=== PATIENT | female | born 1950 | race Caucasian/White ===

== ENCOUNTER 2017-04-12 21:58 | Inpatient (IN) | payer OTHER ==
--- NOTE | ~2017-04-12 | DS ---
Discharge Summary [facility] [address] [place]. [address] NAME: MANUEL AVENDAÑO : 52 STATUS : DIS Carla PAT#: [id number] AGE: 66 ADM/REG DATE : 04/12/17 MR#: [id number] REPORT SERV DATE: 04/16/17 DICTATED BY: LIOR HERNANDEZ DATE: 04/15/17 REPORT STATUS : Draft TRANSCRIBED BY: MODL DATE: 04/15/17 ADMISSION DATE: 04/12/2017 DISCHARGE DATE: 04/15/2017 DISCHARGE DIAGNOSES: 1. Pleuritic chest pain, currently improving. 2. Stable angina currently without pain. 3. Acute kidney injury, now resolved. 4. Chronic kidney disease, stage III. 5. Rheumatoid arthritis. 6. Type 2 diabetes mellitus. 7. Hyperlipidemia. 8. Hypertension. 9. CABG. 10.Chronic left bundle-branch block. 11.Pulmonary nodule, seen by Dr. De La Rosa in the outpatient setting. 12.Obstructive sleep apnea, noncompliant with CPAP. 13.Chronically elevated troponin, currently stable. 14.Prior history of cerebrovascular accident. CONSULTANTS DURING THIS HOSPITALIZATION: Dr. Migdalia Malloy of Cardiology. INVASIVE PROCEDURES DONE DURING THIS HOSPITALIZATION: None. BRIEF HISTORY OF PRESENT ILLNESS: The patient is a 66-year-old female, presented with nonproductive cough, episodes of nausea, vomiting, and having mid chest pain radiating to the left base of the lung and also radiating into the left arm, so she was admitted. For detailed history and physical exam, please see note dictated by Dr. Loi Ocampo on 04/12/2017. HOSPITAL COURSE: After being admitted to the hospital, this patient was worked up for any cardiac issues. Cardiology consultation was obtained. Dr. Malloy did not think that this was cardiogenic and her antianginal medications were continued. This patient has somewhat compliance issues. She did have mild congestive heart failure and she received some IV diuretics; however, that made her kidney function worsen. She received some IV fluids. Her blood pressure was slightly low, so we decreased her Imdur for a day; however, the blood pressure came up, so we have increased her Imdur back to her normal levels. She has had a chronically elevated troponin that remained stable. Dr. Malloy did not think that any further cardiac workup was necessary. A V/Q scan of the chest was done, which was low probability for PE. This patient continued to improve. She did complain of a lot of fatigue and weakness, but this is mainly due to use of multiple medications and her chronic medical issues. She was asked to seek recommendations and help of her primary care physician in the outpatient setting. She remained stable and is being discharged in stable condition. Cardiology has signed off her care. DISCHARGE DISPOSITION: Home. Discharge Summary [address] [address] NAME: MANUEL AVENDAÑO : 52 STATUS : DIS Carla PAT#: [id number] AGE: 66 ADM/REG DATE : 04/12/17 MR#: [id number] REPORT SERV DATE: 04/16/17 DICTATED BY: LIOR HERNANDEZ DATE: 04/15/17 REPORT STATUS : Draft TRANSCRIBED BY: KIKE DATE: 04/15/17 DISCHARGE ACTIVITY: As tolerated. DISCHARGE DIET: 1800-calorie [employer] Diet. DISCHARGE MEDICATIONS: Aspirin 162 mg once every morning, Bumex 1 mg every morning, [place] calcium 500 mg with lunch, Coreg 3.125 mg twice daily, Cardura 2 mg at bedtime, Plaquenil 200 mg twice daily, Lantus 40 units subcutaneously at bedtime, Imdur 60 mg once every morning, Arava 10 mg p.o. every morning, losartan 100 mg every morning, MiraLAX one packet once daily, Ranexa ER 500 mg twice daily, Crestor 20 mg once at bedtime, hydralazine 100 mg twice daily, iron 325 mg with lunch, Humalog sliding scale per home regimen; nitroglycerin 0.4 sublingual p.r.n. for chest pain, Trulicity 0.75 mg subcutaneously once every 7 days, vitamin D OTC. DISCHARGE FOLLOWUP: With Dr. Orestes Ko in one week, with Dr. Migdalia Malloy as scheduled by him. More than 30 minutes spent planning this patient's discharge, reconciling medications, discussing hospital care, and followup with the patient and documenting this discharge. CELESTINO/KIKE Lior Hernandez M.D. / [id number] CC: Nik Morrell M.D. Ondrej J Lisy, M.D.
--- NOTE | ~2017-04-12 | CN ---
Consultation Report [facility] [address] [place]. [address] NAME: MANUEL AVENDAÑO : 52 STATUS : ADM Carla PAT#: [id number] AGE: 66 ADM/REG DATE : 04/12/17 MR#: [id number] REPORT SERV DATE: 04/13/17 DICTATED BY: JENNIFER WALTON DATE: 04/13/17 REPORT STATUS : Draft TRANSCRIBED BY: MODL DATE: 04/13/17 CARDIOLOGY CONSULTATION DATE OF CONSULTATION: REFERRING REASON: Chest pain. HISTORY OF PRESENT ILLNESS: This is a pleasant 66-year-old obese white female, well known to me from [facility] with multiple medical problems, who has been admitted last night to Hospitalist Service for one month lasting dry cough, left-sided pleuritic chest pain, and was found to have chronically mildly elevated troponin. The patient has known coronary artery disease with remote history of CABG in 2009 with last coronary arteriogram in 01/2016, which revealed three patent grafts. Medical therapy was recommended at that time. She has been started on ranolazine last year. She has been tolerating it well and had not had any significant breakthrough angina. She has been also on Imdur. The patient has hospitalization in 12/2016 at [facility] for hypertensive urgency, dietary noncompliance, and fluid overload. She was diuresed. Blood pressure was adjusted. She had chronic elevated troponin also at that time up to 0.2. She has been ambulating with a cane. She has had mild chronic lower extremity edema in the setting of diastolic heart failure. She has preserved systolic function with EF 55% by echo in 12/2016. She, however, stopped taking ranolazine for financial reasons three to four weeks ago. She is not sure if she has been taking all other cardiac medications. She presented last night with dry cough, poorly defined chest pain under the left breast occasionally radiating to the left arm. She remains in normal sinus rhythm with chronic left bundle-branch block. Troponin x1 is 0.15. Brain natriuretic peptide is 308. Chest x- ray is pending. She has had mild renal insufficiency. Creatinine 1.6. The patient is currently chest pain free. She is lying in the bed comfortably, flat, without any dyspnea. She looks depressed. The rest of review of systems negative. PAST MEDICAL HISTORY: 1. Coronary artery disease, remote history of CABG in 2009 with last coronary arteriogram in 01/2016, three out of three grafts patent. Medical therapy recommended. 2. Chronic Imdur and ranolazine use for stable angina. 3. History of non-STEMI in 03/2016. 4. Chronic mild troponin leak up to 0.2. 5. Episodes of hypertensive urgency in 12/2016. 6. Chronic diastolic heart failure, moderate dysfunction noted on echo in 12/2016 with preserved systolic function, EF 55% in 12/2016 with some moderate LVH. 7. Diabetes mellitus. 8. Obesity. 9. Hypertension. Consultation Report [facility] [address] [place]. [address] NAME: MANUEL AVENDAÑO : 52 STATUS : ADM Carla PAT#: [id number] AGE: 66 ADM/REG DATE : 04/12/17 MR#: [id number] REPORT SERV DATE: 04/13/17 DICTATED BY: JENNIFER WALTON DATE: 04/13/17 REPORT STATUS : Draft TRANSCRIBED BY: KIKE DATE: 04/13/17 10.Paroxysmal atrial fibrillation, currently normal sinus rhythm. Chronic left bundle- branch block on electrocardiogram. 11.Obstructive sleep apnea. 12.Rheumatoid arthritis, on chronic steroids. SOCIAL HISTORY: The patient lives with her daughter. She denies smoking, drinking alcohol, or using street drugs. FAMILY HISTORY: Negative for sudden cardiac or premature coronary artery disease in the family. ALLERGIES: CODEINE, ATORVASTATIN, CAUSING RASH AND PENICILLIN. HOME MEDICATIONS: Aspirin 81 mg once a day, Bumex 1 mg once a day, Coreg 3.125 mg twice a day, Cardura 2 mg once a day, hydralazine 100 mg twice a day, Plaquenil 200 mg twice a day, insulin, Imdur 60 mg once a day, Arava 10 mg once a day, Cozaar 100 mg once a day, Ranexa 500 mg twice a day, Crestor 20 mg once a day, iron supplement. PHYSICAL EXAMINATION: GEN - No acute distress. The patient has a flat affect. VITAL SIGNS: Blood pressure 155/60, heart rate 83 and regular. HEENT - Pupils reactive to light and accommodation. Moist mucosa membrane. NECK: No JVD. Normal carotid upstroke. No carotid bruits. LUNGS: Decreased breath sounds, but no crackles. COR: Normal S1, S2. No S3 or S4. No significant rub or murmurs. ABD: Morbidly obese, distended, nontender. EXT: Lower extremity, trace edema around the ankle with decreased pedal pulses bilaterally. SKIN: Warm with normal turgor. MS - No kyphosis. NEURO/PSY - Alert and oriented. Nonfocal. DATA: CBC remarkable for hemoglobin 10.7. Creatinine 1.6, BUN 31. Troponin 0.15. Brain natriuretic peptide 308. Electrocardiogram revealed sinus rhythm, 71 beats per minute, chronic left bundle-branch block. Chest x-ray is pending. ASSESSMENT AND PLAN: 1. Pleuritic chest pain and dry cough of unclear etiology. 2. Chronic angina with recently stopped medication. 3. Chronic troponin leak without clear evidence of acute coronary syndrome. 4. Coronary artery disease, multivessel with a remote history of CABG in 2009. 5. Obesity. 6. Immunosuppression due to rheumatoid arthritis. 7. Chronic diastolic heart failure. The patient will be started on fluid restriction, low-sodium diet. We will restart her Consultation Report [address] [place]. [address] NAME: MANUEL AVENDAÑO : 52 STATUS : ADM Carla PAT#: [id number] AGE: 66 ADM/REG DATE : 04/12/17 MR#: [id number] REPORT SERV DATE: 04/13/17 DICTATED BY: JENNIFER WALTON DATE: 04/13/17 REPORT STATUS : Draft TRANSCRIBED BY: KIKE DATE: 04/13/17 angina medications including ranolazine and Imdur. At the present time, I have significant doubt that the presentation represents acute coronary syndrome. She has chronically elevated troponin up to 0.2, currently at 0.15. There was no exacerbation of her chest pain. There is no exertional component to it. There is some pleuritic component. In case that her creatinine will improve, consider CTA. We will recheck enzymes. No need for echocardiogram while she had echocardiogram in December. I will follow the patient clinically with you. SUSANNE/KIKE Jennifer Walton M.D. / [id number] CC: MD Orestes Uribe M.D.
--- NOTE | ~2017-04-12 | HP ---
History And Physical [place] [id number] [facility] [place]. [address] NAME: MANUEL AVENDAÑO : 52 STATUS : ADM Carla PAT#: [id number] AGE: 66 ADM/REG DATE : 04/12/17 MR#: [id number] REPORT SERV DATE: 04/15/17 DICTATED BY: LUIS CAUSEY DATE: 04/13/17 REPORT STATUS : Draft TRANSCRIBED BY: MODL DATE: 04/13/17 DATE OF ADMISSION: 04/12/2017 CHIEF COMPLAINT: A 66-year-old female, presenting with chest pain. HISTORY OF PRESENT ILLNESS: The patient's history was obtained through careful interview with the patient, coupled with review of [facility] medical records. The patient states that she first became ill around April 08. She developed a nonproductive cough. She had episodes of nausea and vomiting. These symptoms seemed to improve over a few days and then slightly recurred to a lesser degree on the 24 hours leading up to admission. But then on the night of admission, the patient developed chest discomfort. She describes it as a mid chest pain radiating to the left base of lung and also radiating up into the left arm as well, a soreness quality 8/10 severity and transient chest discomfort on April 10 with some shortness of breath but not as severe as tonight's presentation. She took nitroglycerin to relieve the pain. She has noticed some increasing lower extremity edema and orthopnea symptoms. She has had "flaring" of her rheumatoid arthritis especially in her hands and wrists but with no erythema. No fevers or chills. She claims diabetes is under good control. REVIEW OF SYSTEMS: Otherwise, a 14-point review of systems was obtained and was negative. PAST MEDICAL HISTORY: 1. Stroke. 2. CABG followed by Dr. Malloy. 3. Hypertension. 4. Diverticulitis status post surgical resection. 5. Diabetes. 6. Left bundle-branch block. 7. Rheumatoid arthritis, on Arava and Plaquenil. 8. Chronic kidney disease, stage 3, 1.3 to 1.8. 9. Atrial fibrillation. 10.Elevated cholesterol. 11.Pulmonary nodules seen by Dr. De La Rosa. 12.Obstructive sleep apnea, noncompliant with CPAP. 13.Chronically elevated troponin 0.10 to 0.20. PAST SURGICAL HISTORY: 1. CABG in 2009. 2. Cholecystectomy. History And Physical [address] [place]. [address] NAME: MANUEL AVENDAÑO : 52 STATUS : ADM Carla PAT#: [id number] AGE: 66 ADM/REG DATE : 04/12/17 MR#: [id number] REPORT SERV DATE: 04/15/17 DICTATED BY: LUIS CAUSEY DATE: 04/13/17 REPORT STATUS : Draft TRANSCRIBED BY: KIKE DATE: 04/13/17 3. Hysterectomy. 4. Sigmoid colectomy for diverticulitis. 5. Colovesical fistula repair. 6. Left groin cyst repair. ALLERGIES: TO PENICILLIN, CODEINE, AND LIPITOR. SOCIAL HISTORY: No tobacco abuse. No alcohol abuse. Lives with daughter, worked for [employer]. FAMILY HISTORY: Father with heart disease. Mother with cervical cancer. Strong family history of diabetes. Son apparently had to be on dialysis. CURRENT MEDICATIONS: Include aspirin 162 mg p.o. daily, Bumex 1 mg every morning, Coreg 3.125 mg p.o. b.i.d., Cardura 2 mg p.o. daily, Trulicity 0.75 mg subcutaneous weekly, hydralazine 100 mg p.o. b.i.d., Plaquenil 200 mg p.o. b.i.d., Lantus 40 units subcutaneous daily, sliding-scale insulin, isosorbide mononitrate 60 mg p.o. daily, Arava 10 mg p.o. daily, Cozaar 100 mg p.o. daily, nitroglycerin, calcium, MiraLAX packet daily, Ranexa 500 mg p.o. b.i.d., Crestor 20 mg p.o. daily, iron supplement, vitamin D. PHYSICAL EXAMINATION: VITAL SIGNS: Temperature 99.5, pulse , blood pressure 210/85, respiratory rate 20, O2 saturation 95% on room air. GENERAL: A pleasant, cooperative female. She is in no evidence of distress while I am evaluating her. HEENT: Pupils are equal, round, and reactive to light. No conjunctival pallor. No scleral icterus. Nares are patent. Oropharynx is clear of obstruction. Moist mucous membranes. NECK: Trachea midline. No thyromegaly. LYMPH: No cervical lymphadenopathy. No supraclavicular lymphadenopathy. RESPIRATORY: The patient's respiratory exam is completely clear. I do not appreciate any rales on exam. No wheezes. Nonlabored respiratory effort. CARDIOVASCULAR: Regular rate and rhythm. No murmurs, rubs, or gallops. The patient does have some lower extremity edema on exam pitting around the ankles and shins symmetrically. ABDOMEN: Soft, nontender, nondistended. Normal bowel sounds auscultated throughout. No hepatosplenomegaly. DERMATOLOGICAL: Warm and dry extremities. No pallor, no cyanosis. PSYCHIATRIC: Normal affect. Good mood. Alert and oriented x3. LABORATORY DATA: Troponin 0.15. Brain natriuretic peptide 308. Lipase 244, INR 1.2. Liver enzymes within normal limits. White blood cell count 3.5, hemoglobin 11, hematocrit 32, platelets 179. Sodium 139, potassium 3.9, chloride 102 . Glucose 134. Urinalysis shows moderate leukocyte esterase, white blood cells. STUDIES: 1. Chest x-ray by my own evaluation shows no acute cardiopulmonary process. 2. EKG by my own evaluation . History And Physical [address] [address] NAME: MANUEL AVENDAÑO RAFITA : 52 STATUS : ADM Carla PAT#: [id number] AGE: 66 ADM/REG DATE : 04/12/17 MR#: [id number] REPORT SERV DATE: 04/15/17 DICTATED BY: LUIS CAUSEY DATE: 04/13/17 REPORT STATUS : Draft TRANSCRIBED BY: KIKE DATE: 04/13/[address] scan of the abdomen and pelvis shows no acute . ASSESSMENT AND PLAN: 1. Chest pain evaluation. Obtain a Cardiology consult with Dr. Malloy, placed on aspirin examination. Check an echocardiogram. Increase . 2. Elevated troponin 0.10 to 0.20. 3. Chronic kidney disease, stage III. 4. Rheumatoid arthritis. Check ESR. Check CRP, on Plaquenil, and Arava. 5. Leukopenia and anemia. Check studies. KPL/MODL Luis Causey M.D. / [id number] CC: MD Orestes Uribe M.D. Ondrej J Lisy, M.D. Pamela Sud, M.D.
[~2017-04-12 21:58] MED LIST: APRES25 PO; APRES50 PO; ARAVA10 PO; ASAB PO; ATEN50 PO; AVELOX400 PO; B12250T PO; BUM2 PO; CALTRAT600 PO; CARDU2 PO; CAT2 PO; CEFT5 PO; CEFZIL500 MG PO; COREG12 PO; COREG25 PO; COREG3 PO; COREG6 PO; COZAAR100 MG PO; CRESTOR20 MG PO; DIABETIC FOOT CREAM TOP; FLAG500TAB PO; GLUCOPHAGE1000 MG PO; GLUCOTROL5 PO; HALF81 PO; HUMALOG SC; HYDRALAZINE100 MG PO; IMDUR30 PO; IMDUR60 PO; KDUR20 PO; KLOR-CON M2020 MEQ PO; L20 PO; L40 PO; LANTUS SC; LANTUSCART SC; LEVAQUIN750 MG PO; LEXAPRO20 PO; LIPITOR40 PO; LOP25 PO; LORTAB 5 PO; MAGOX4 PO; METAMUCIL CAN7 OZ PO; METPAKSF PO; MIRALAXPKT PO; NEO500 PO; NITROSTAT0.4 MG SL; NORV10 PO; NORV5 PO; NOVOLOG SC; PACERONE200 MG PO; PERCOCET1 TA2 PO; PLAQ200B PO; PLAVIX PO; PRAVAC PO; PRAVACHOL40 MG PO; PREDNISONE2.5 MG PO; PRIN5 PO; RAN500 PO; SPIRO25 PO; SYMBICORT 80/4.1 INH INH; TRULICITY0.75 MG/0. SQ; VITAMIN D2000 UNIT PO; VITC500 PO; ZANTAC 150 PO; ZANTAC150 MG PO; ZANTAC300 MG PO
[2017-04-13 00:18] LABS: BASOPHILS 0 %; EOSINOPHILS 1.1 %; EOSINOPHILS ABSOLUTE 0.04 10/3/uL (0.0-0.53); HEMATOCRIT 31.7 % (36.0-48.0); HEMOGLOBIN 10.7 g/dL (12.0-16.0); IMMATURE GRANULOCYTES 0.3 %; IMMATURE GRANULOCYTES ABSOLUTE 0.01 10/3/uL (0.0-0.11); LYMPHOCYTES 8.5 %; MEAN CORPUS HGB CONC 33.8 g/dL (32.0-36.0); MEAN CORPUSCULAR HEMOGLOB 28.7 pg (26.0-34.0); MEAN PLATELET VOLUME 8.1 fL (9.2-13.0); MONOCYTES ABSOLUTE 0.14 10/3/uL (0.21-1.20); NEUTROPHILS 86.1 %; NEUTROPHILS ABSOLUTE 3.05 10/3/uL (2.02-8.40); PLATELET COUNT 179 10/3/uL (150-400); RBC DISTRIBUTION WIDTH 13.3 % (12.0-16.0); RED CELL COUNT 3.73 10/6/uL (4.0-5.6); WHITE BLOOD CELLS 3.5 10/3/uL (4.5-10.5)
[2017-04-13 00:21] LABS: ER CBC TAT 0 Hrs 04 MinsNP; MANUAL DIFF NO %
[2017-04-13 00:25] LABS: ASCORBIC ACID (UR NOT ORDER) NEG (NEG); BILIRUBIN, URINE NEGATIVE (NEG); ER URINALYSIS TAT 0 Hrs 00 Mins; KETONE, URINE NEGATIVE (NEG); LEUKOCYTE ESTERASE(NOT OR MOD (NEG); NITRITE (URINE) NEG (NEG); WBC (NOT ORDERED) (RFLEX) 3 (0-5)
[2017-04-13 00:31] LABS: INTERNATIONAL NORMAL RATI 1.2 UNITS (-); PARTIAL THROMBO TIME 28.1 SEC (22.5-37.2); PROTIME (NOT ORD) 14.8 SEC (12.0-14.5)
[2017-04-13 00:38] LABS: ALBUMIN 3.1 G/DL (3.5-5.0); ALKALINE PHOSPHATASE 55 U/L (45-117); CALCIUM, SERUM 9.4 MG/DL (8.5-10.4); CHLORIDE, SERUM 102 MMOL/L (96-112); CO2 (CARBON DIOXIDE) 31 MMOL/L (24-34); CREATININE 1.65 MG/DL (0.55-1.02); DIRECT BILIRUBIN 0.1 MG/DL (0.0-0.4); GFR AFRICAN AMERICAN 37 ML/MIN (>=60); GFR NON AFRICAN AMERICAN 32 ML/MIN (>=60); GLUCOSE, SERUM 134 MG/DL (60-99); INDIRECT BILIRUBIN(NOT ORDER) 0.4 MG/DL (0.1-0.9); POTASSIUM, SERUM 3.9 MMOL/L (3.5-5.3); SGOT(AST) 24 U/L (5-40); SGPT(ALT) 34 U/L (5-65); SODIUM, SERUM 139 MMOL/L (135-148); TOTAL BILIRUBIN 0.5 MG/DL (0-1.2); TOTAL PROTEIN 6.5 G/DL (6.0-8.5)
[2017-04-13 00:41] LABS: BUN (BLOOD UREA NITROGEN) 31 MG/DL (6-23)
[2017-04-13 00:42] LABS: CHEST PAIN PROFILE TAT 0 Hrs 25 Mins; TROPONIN I 0.15 NG/ML (<0.05)
[2017-04-13] MEDS ORDERED: ASAB PO (03:59)
[2017-04-13] MEDS ORDERED: BUM1 PO (03:59)
[2017-04-13] MEDS ORDERED: OYST-CAL500 MG PO (04:00)
[2017-04-13] MEDS ORDERED: COREG3 PO (04:00)
[2017-04-13] MEDS ORDERED: FERROUS SULFATE PO (04:00)
[2017-04-13] MEDS ORDERED: CARDU2 PO (04:01)
[2017-04-13] MEDS ORDERED: CRESTOR20 MG PO (04:01)
[2017-04-13] MEDS ORDERED: HUMALOG SC (04:02)
[2017-04-13] MEDS ORDERED: HYDRALAZINE100 MG PO (04:03)
[2017-04-13] MEDS ORDERED: IMDUR60 PO (04:05)
[2017-04-13] MEDS ORDERED: LANTUS SC (04:05)
[2017-04-13] MEDS ORDERED: ARAVA10 PO (04:05)
[2017-04-13] MEDS ORDERED: NITROSTAT0.4 MG SL (04:06)
[2017-04-13] MEDS ORDERED: COZAAR100 MG PO (04:06)
[2017-04-13] MEDS ORDERED: RAN500 PO (04:08)
[2017-04-13] MEDS ORDERED: TRULICITY0.75 MG/0. SC (04:09)
[2017-04-13] MEDS ORDERED: VITAMIN D OTC PO (04:10)
[2017-04-13] MEDS ORDERED: PLAQ200B PO (04:11)
[2017-04-13] MEDS ORDERED: MIRALAX POWDER1 PKT PO (04:12)
[2017-04-13 14:33] LABS: C-REACTIVE PROTEIN 14.3 MG/L (<8.0); INTERNATIONAL NORMAL RATI 1.2 UNITS (-); PARTIAL THROMBO TIME 27.7 SEC (22.5-37.2); PROTIME (NOT ORD) 15.1 SEC (12.0-14.5)
[2017-04-13 14:55] LABS: A/G RATIO 0.8 (0.7-1.9); ALBUMIN 2.9 G/DL (3.5-5.0); ALKALINE PHOSPHATASE 54 U/L (45-117); BUN (BLOOD UREA NITROGEN) 30 MG/DL (6-23); CALCIUM, SERUM 9.5 MG/DL (8.5-10.4); CHLORIDE, SERUM 101 MMOL/L (96-112); CO2 (CARBON DIOXIDE) 32 MMOL/L (24-34); CREATININE 1.63 MG/DL (0.55-1.02); FERRITIN 124 NG/ML (8-252); GFR AFRICAN AMERICAN 38 ML/MIN (>=60); GFR NON AFRICAN AMERICAN 33 ML/MIN (>=60); GLOBULIN 3.6 G/DL (2.5-4.1); GLUCOSE, SERUM 140 MG/DL (60-99); IRON BINDING CAPACITY 244 MCG/DL (225-410); IRON, SERUM 38 MCG/DL (35-150); SGOT(AST) 26 U/L (5-40); SGPT(ALT) 34 U/L (5-65); SODIUM, SERUM 134 MMOL/L (135-148); TOTAL PROTEIN 6.5 G/DL (6.0-8.5)
[2017-04-13 14:56] LABS: FOLATE 15.4 NG/ML (>5.2); TOTAL BILIRUBIN 1.2 MG/DL (0-1.2); TROPONIN I 0.15 NG/ML (<0.05)
[2017-04-13 17:04] LABS: BASOPHILS 0.4 %; BASOPHILS ABSOLUTE 0.01 10/3/uL (0.0-0.16); EOSINOPHILS 1.4 %; EOSINOPHILS ABSOLUTE 0.04 10/3/uL (0.0-0.53); HEMATOCRIT 31.1 % (36.0-48.0); HEMOGLOBIN 10.1 g/dL (12.0-16.0); IMMATURE GRANULOCYTES 0.4 %; IMMATURE GRANULOCYTES ABSOLUTE 0.01 10/3/uL (0.0-0.11); LYMPHOCYTES 13.9 %; LYMPHOCYTES ABSOLUTE 0.39 10/3/uL (0.67-4.30); MEAN CORPUS HGB CONC 32.5 g/dL (32.0-36.0); MEAN CORPUSCULAR HEMOGLOB 27.8 pg (26.0-34.0); MEAN CORPUSCULAR VOLUME 85.7 fL (80-100); MEAN PLATELET VOLUME 8.6 fL (9.2-13.0); MONOCYTES 3.9 %; MONOCYTES ABSOLUTE 0.11 10/3/uL (0.21-1.20); NEUTROPHILS ABSOLUTE 2.24 10/3/uL (2.02-8.40); PLATELET COUNT 203 10/3/uL (150-400); RBC DISTRIBUTION WIDTH 13.7 % (12.0-16.0); RED CELL COUNT 3.63 10/6/uL (4.0-5.6); WHITE BLOOD CELLS 2.8 10/3/uL (4.5-10.5)
[2017-04-13 17:07] LABS: MANUAL DIFF NO %
[2017-04-13 18:11] LABS: SED RATE 39 MM/HR (0-20)
[2017-04-14 05:02] LABS: BASOPHILS 0.3 %; BASOPHILS ABSOLUTE 0.01 10/3/uL (0.0-0.16); EOSINOPHILS 1.6 %; EOSINOPHILS ABSOLUTE 0.05 10/3/uL (0.0-0.53); HEMATOCRIT 30.7 % (36.0-48.0); HEMOGLOBIN 9.9 g/dL (12.0-16.0); LYMPHOCYTES 10.7 %; LYMPHOCYTES ABSOLUTE 0.33 10/3/uL (0.67-4.30); MANUAL DIFF NO %; MEAN CORPUS HGB CONC 32.2 g/dL (32.0-36.0); MEAN CORPUSCULAR HEMOGLOB 27.5 pg (26.0-34.0); MEAN CORPUSCULAR VOLUME 85.3 fL (80-100); MEAN PLATELET VOLUME 8.3 fL (9.2-13.0); MONOCYTES 5.5 %; MONOCYTES ABSOLUTE 0.17 10/3/uL (0.21-1.20); NEUTROPHILS 81.9 %; NEUTROPHILS ABSOLUTE 2.51 10/3/uL (2.02-8.40); PLATELET COUNT 177 10/3/uL (150-400); RBC DISTRIBUTION WIDTH 13.7 % (12.0-16.0); WHITE BLOOD CELLS 3.1 10/3/uL (4.5-10.5)
[2017-04-14 05:17] LABS: A/G RATIO 0.8 (0.7-1.9); ALBUMIN 2.7 G/DL (3.5-5.0); ALKALINE PHOSPHATASE 52 U/L (45-117); CHLORIDE, SERUM 103 MMOL/L (96-112); CO2 (CARBON DIOXIDE) 31 MMOL/L (24-34); CREATININE 1.99 MG/DL (0.55-1.02); GFR AFRICAN AMERICAN 30 ML/MIN (>=60); GFR NON AFRICAN AMERICAN 26 ML/MIN (>=60); GLOBULIN 3.2 G/DL (2.5-4.1); GLUCOSE, SERUM 125 MG/DL (60-99); PHOSPHORUS, SERUM 3.2 MG/DL (2.5-4.5); POTASSIUM, SERUM 3.8 MMOL/L (3.5-5.3); SGOT(AST) 23 U/L (5-40); SGPT(ALT) 29 U/L (5-65); SODIUM, SERUM 138 MMOL/L (135-148); TOTAL PROTEIN 5.9 G/DL (6.0-8.5)
[2017-04-14 05:22] LABS: BUN (BLOOD UREA NITROGEN) 35 MG/DL (6-23); TOTAL BILIRUBIN 0.3 MG/DL (0-1.2); TROPONIN I 0.14 NG/ML (<0.05)
[2017-04-15 06:38] LABS: BASOPHILS 0.3 %; BASOPHILS ABSOLUTE 0.01 10/3/uL (0.0-0.16); EOSINOPHILS 2.5 %; EOSINOPHILS ABSOLUTE 0.08 10/3/uL (0.0-0.53); HEMATOCRIT 30.3 % (36.0-48.0); HEMOGLOBIN 9.8 g/dL (12.0-16.0); IMMATURE GRANULOCYTES 0.3 %; IMMATURE GRANULOCYTES ABSOLUTE 0.01 10/3/uL (0.0-0.11); LYMPHOCYTES 10.8 %; LYMPHOCYTES ABSOLUTE 0.35 10/3/uL (0.67-4.30); MEAN CORPUS HGB CONC 32.3 g/dL (32.0-36.0); MEAN CORPUSCULAR HEMOGLOB 27.7 pg (26.0-34.0); MEAN CORPUSCULAR VOLUME 85.6 fL (80-100); MEAN PLATELET VOLUME 8.3 fL (9.2-13.0); MONOCYTES 6.8 %; MONOCYTES ABSOLUTE 0.22 10/3/uL (0.21-1.20); NEUTROPHILS 79.3 %; NEUTROPHILS ABSOLUTE 2.58 10/3/uL (2.02-8.40); PLATELET COUNT 183 10/3/uL (150-400); RBC DISTRIBUTION WIDTH 13.7 % (12.0-16.0); RED CELL COUNT 3.54 10/6/uL (4.0-5.6); WHITE BLOOD CELLS 3.3 10/3/uL (4.5-10.5)
[2017-04-15 06:39] LABS: MANUAL DIFF NO %
[2017-04-15 06:53] LABS: ALBUMIN 2.8 G/DL (3.5-5.0); BUN (BLOOD UREA NITROGEN) 36 MG/DL (6-23); CALCIUM, SERUM 8.6 MG/DL (8.5-10.4); CHLORIDE, SERUM 106 MMOL/L (96-112); CO2 (CARBON DIOXIDE) 31 MMOL/L (24-34); CREATININE 1.85 MG/DL (0.55-1.02); GFR AFRICAN AMERICAN 33 ML/MIN (>=60); GFR NON AFRICAN AMERICAN 28 ML/MIN (>=60); PHOSPHORUS, SERUM 2.7 MG/DL (2.5-4.5); SODIUM, SERUM 141 MMOL/L (135-148)
[2017-04-15 06:54] LABS: GLUCOSE, SERUM 89 MG/DL (60-99)
[2017-06-17] MEDS ORDERED: BUM1 PO (16:39)
[2017-06-17] MEDS ORDERED: ASAB PO (16:39)
[2017-06-17] MEDS ORDERED: COREG6 PO (16:40)
[2017-06-17] MEDS ORDERED: CRESTOR20 MG PO (16:42)
[2017-06-17] MEDS ORDERED: HUMALOG SC (16:42)
[2017-06-17] MEDS ORDERED: HYDRALAZINE100 MG PO (16:43)
[2017-06-17] MEDS ORDERED: PLAQ200B PO (16:44)
[2017-06-17] MEDS ORDERED: IMDUR60 PO (16:46)
[2017-06-17] MEDS ORDERED: LANTUS SC (16:47)
[2017-06-17] MEDS ORDERED: ARAVA10 PO (16:48)
[2017-06-17] MEDS ORDERED: COZAAR100 MG PO (16:49)
[2017-06-17] MEDS ORDERED: NITROSTAT0.4 MG SL (16:50)
[2017-06-17] MEDS ORDERED: RAN500 PO (16:52)
[2017-06-17] MEDS ORDERED: TRULICITY0.75 MG/0. SQ (16:53)
[2017-06-17] MEDS ORDERED: FERROUS SULF325 M1 PO (16:53)
[2017-06-17] MEDS ORDERED: MIRALAX POWDER1 PKT PO (16:55)
[2017-06-17] MEDS ORDERED: PRILOSEC40 MG PO (16:56)
[2017-06-17] MEDS ORDERED: TEARS PLUS OPH (16:56)
[2017-06-17] MEDS ORDERED: SUCR PO (16:57)
[2017-06-17] MEDS ORDERED: CARDU2 PO (16:58)
[2017-06-24] MEDS ORDERED: VANCOCIN HCL125 MG PO (08:48)
[2017-06-24] MEDS ORDERED: CORDARONE PO (08:48)
[2017-06-24] MEDS ORDERED: ELIQUIS 5 MG TAB5 MG PO (08:49)
[2017-06-24] MEDS ORDERED: XARELTO15 MG PO (12:58)
[2017-07-14] MEDS ORDERED: PCET PO (18:21)
[2017-07-14] MEDS ORDERED: PACERONE200 MG PO (18:21)
[2017-07-14] MEDS ORDERED: CARBAMIDE PEROXIDE MT (18:21)
[2017-07-14] MEDS ORDERED: TEARS PURE OPH (18:21)
[2017-07-14] MEDS ORDERED: CARDU2 PO (18:22)
[2017-07-14] MEDS ORDERED: BUM2 PO (18:22)
[2017-07-14] MEDS ORDERED: COREG6 PO (18:22)
[2017-07-14] MEDS ORDERED: ASAB PO (18:22)
[2017-07-14] MEDS ORDERED: PLAQ200B PO (18:23)
[2017-07-14] MEDS ORDERED: HYDRALAZINE100 MG PO (18:23)
[2017-07-14] MEDS ORDERED: TRULICITY0.75 MG/0. SQ (18:23)
[2017-07-14] MEDS ORDERED: LANTUS SC (18:23)
[2017-07-14] MEDS ORDERED: FERROUS SULF325 M1 PO (18:23)
[2017-07-14] MEDS ORDERED: IMDUR60 PO (18:24)
[2017-07-14] MEDS ORDERED: ARAVA10 PO (18:24)
[2017-07-14] MEDS ORDERED: HUMALOG SC (18:24)
[2017-07-14] MEDS ORDERED: COZAAR100 MG PO (18:24)
[2017-07-14] MEDS ORDERED: NITROSTAT0.4 MG SL (18:24)
[2017-07-14] MEDS ORDERED: MIRALAX POWDER1 PKT PO (18:25)
[2017-07-14] MEDS ORDERED: PRILOSEC40 MG PO (18:25)
[2017-07-14] MEDS ORDERED: XARELTO15 MG PO (18:25)
[2017-07-14] MEDS ORDERED: SUCR PO (18:25)
[2017-07-14] MEDS ORDERED: RAN500 PO (18:25)
[2017-07-14] MEDS ORDERED: CRESTOR20 MG PO (18:25)
[2017-07-14] MEDS ORDERED: VANCOCIN HCL125 MG PO (18:26)
== END 2017-04-15 17:52 | disposition home or self-care (01) | DRG 292 ==
LOC: ER 21:58 → 7NO 23:59
PROVIDERS: Emergency Medicine; Hospitalist; Internal Medicine; Internal Medicine Cardiovascular Disease; Specialist
DX: I13.0 Hypertensive heart and chronic kidney disease with heart failure and stage 1 through stage 4 chronic kidney disease, or unspecified chronic kidney disease (principal); N17.9 Acute kidney failure, unspecified; E11.22 Type 2 diabetes mellitus with diabetic chronic kidney disease; Z95.1 Presence of aortocoronary bypass graft; I50.32 Chronic diastolic (congestive) heart failure; R07.89 Other chest pain; I25.10 Atherosclerotic heart disease of native coronary artery without angina pectoris; N18.3 Chronic kidney disease, stage 3 (moderate); M06.9 Rheumatoid arthritis, unspecified; E78.5 Hyperlipidemia, unspecified; I44.7 Left bundle-branch block, unspecified; G47.33 Obstructive sleep apnea (adult) (pediatric); Z86.73 Personal history of transient ischemic attack (TIA), and cerebral infarction without residual deficits; I25.119 Atherosclerotic heart disease of native coronary artery with unspecified angina pectoris; R91.1 Solitary pulmonary nodule
CPT/HCPCS: 71010; 71020; 74176; 78582; 80048; 80053; 80069; 80076; 81001; 82607; 82728; 82746; 82962; 83540; 83550; 83690; 83735; 83880; 84100; 84443; 84484; 85025; 85610; 85652; 85730; 86140; 87086; 93005; 96374; 99285; A9270-GY; A9540; A9567; C8929; J2405; Q9957